=== PATIENT | female | born 1965 | race Caucasian/White ===

== ENCOUNTER 2017-01-29 14:46 | Emergency (ER) | payer OTHER ==
[~2017-01-29] VITALS: Ht 167.6 cm; Wt 104.3 kg
[~2017-01-29 14:46] MED LIST: MOTRIN800 MG PO; NKHM; TESSALON PERLE200 MG PO; ZITHROMAX250 MG PO
[2017-01-29 14:52] VITALS: BP 152/92
[2017-01-29] MEDS ORDERED: CLARITIN-D 12 H1 TAB PO (14:55)
[2017-01-29] MEDS ORDERED: FLONASE ALLERG9.9 ML NAS (14:55)
== END 2017-01-29 15:05 | disposition home or self-care (01) ==
LOC: ED 14:46
DX: H69.93 Unspecified Eustachian tube disorder, bilateral (principal); Z88.1 Allergy status to other antibiotic agents; Z88.5 Allergy status to narcotic agent

== ENCOUNTER 2017-03-03 18:56 | Emergency (ER) | payer OTHER ==
[~2017-03-03] VITALS: Ht 167.6 cm; Wt 104.3 kg
[~2017-03-03 18:56] MED LIST changes: +CLARITIN-D 12 H1 TAB PO; +FLONASE ALLERG9.9 ML NAS
[2017-03-03 19:19] LABS: BASO % 0.3 % (0.0-1.0); EOS # 0.2 10*3/uL (0.0-0.4); EOS % 1.3 % (1.0-4.0); HEMOGLOBIN 13.2 g/dl (12.0-16.0); LYMPH # 2.5 10*3/uL (1.3-4.4); LYMPH % 22.1 % (27.0-41.0); MEAN CELL VOLUME 91.1 fl (81.0-99.0); MEAN CORPUSCULAR HGB 30.1 pg (27.0-31.0); MONO # 0.5 10*3/uL (0.1-1.0); MONO % 4.3 % (3.0-9.0); NEUT # 8.3 10*3/uL (2.3-7.9); NEUT % 71.8 % (47.0-73.0); PLATELET COUNT AUTOMATED 215 10*3/uL (130-400); RED BLOOD COUNT 4.39 10*6/uL (4.10-5.10); RED CELL DISTRI WIDTH 13.1 % (0-14.5); WHITE BLOOD COUNT 11.5 10*3/uL (4.8-10.8)
[2017-03-03 19:36] LABS: ALBUMIN 3.4 gm/dl (3.1-4.5); ALKALINE PHOSPHATASE 94 U/L (45-117); BUN 12 mg/dl (7-24); CHLORIDE 104 mmol/L (98-107); CREATININE 0.99 mg/dL (0.55-1.02); POTASSIUM 3.7 mmol/L (3.5-5.1); SGOT/AST 14 IU/L (3-35); SGPT/ALT 15 U/L (12-78); SODIUM 139 mmol/L (136-145); TOTAL PROTEIN 7.6 gm/dL (6.4-8.2)
[2017-03-03] MEDS ORDERED: PREDNISONE20 M1 PO (20:12)
[2017-03-03] MEDS ORDERED: PREDNISONE10 M1 PO (20:14)
[2017-03-03 20:15] VITALS: BP 154/93
== END 2017-03-03 20:17 | disposition home or self-care (01) ==
LOC: ED 18:56
PROVIDERS: Emergency Medicine
DX: L50.9 Urticaria, unspecified (principal); Z88.1 Allergy status to other antibiotic agents; Z88.6 Allergy status to analgesic agent

== ENCOUNTER 2017-03-05 08:43 | Emergency (ER) | payer OTHER ==
[~2017-03-05] VITALS: Wt 99.8 kg
[~2017-03-05 08:43] MED LIST changes: +PREDNISONE10 M1 PO; +PREDNISONE20 M1 PO
[2017-03-05 08:45] VITALS: BP 157/90
[2017-03-05] MEDS ORDERED: CORTISPORIN SUS10 ML OT (09:41)
== END 2017-03-05 10:51 | disposition home or self-care (01) ==
LOC: ED 08:43
DX: H60.91 Unspecified otitis externa, right ear (principal); J34.89 Other specified disorders of nose and nasal sinuses; R09.81 Nasal congestion; Z88.1 Allergy status to other antibiotic agents; Z88.6 Allergy status to analgesic agent

== ENCOUNTER 2017-07-25 08:44 | Emergency (ER) | payer OTHER ==
[~2017-07-25] VITALS: Ht 167.6 cm; Wt 99.8 kg
[~2017-07-25 08:44] MED LIST changes: +CORTISPORIN SUS10 ML OT
[2017-07-25 08:48] VITALS: BP 152/96
[2017-07-25] MEDS ORDERED: TAMIFLU 75MG CA75 MG PO (09:29)
== END 2017-07-25 10:08 | disposition home or self-care (01) ==
LOC: ED 08:44
DX: J11.1 Influenza due to unidentified influenza virus with other respiratory manifestations (principal); Z88.1 Allergy status to other antibiotic agents; Z88.6 Allergy status to analgesic agent

== ENCOUNTER → 2017-11-15 | Outpatient (CLI) | payer SELFPAY ==
[~2017-11-15] MED LIST changes: +TAMIFLU 75MG CA75 MG PO
== END | disposition home or self-care (01) ==
LOC: ORTHO 03:15
DX: M19.041 Primary osteoarthritis, right hand (principal)

== ENCOUNTER 2018-01-10 09:18 | Emergency (ER) | payer OTHER ==
[~2018-01-10] VITALS: Wt 104.3 kg
[2018-01-10 09:22] VITALS: BP 157/85
[2018-01-10] MEDS ORDERED: PENNSAID112 GM T (09:29)
[2018-01-10] MEDS ORDERED: DELTASONE20 M1 PO (09:41)
== END 2018-01-10 09:45 | disposition home or self-care (01) ==
LOC: ED 09:18
DX: L29.9 Pruritus, unspecified (principal); T39.395A Adverse effect of other nonsteroidal anti-inflammatory drugs [NSAID], initial encounter; Z88.1 Allergy status to other antibiotic agents; Z88.5 Allergy status to narcotic agent; Z88.8 Allergy status to other drugs, medicaments and biological substances; Y92.9 Unspecified place or not applicable

== ENCOUNTER → 2019-07-04 | Outpatient (CLI) | payer OTHER ==
[~2019-07-04] MED LIST changes: +DELTASONE20 M1 PO; +PENNSAID112 GM T
== END | disposition home or self-care (01) ==
LOC: RAD 11:45
DX: R05 Cough (principal)

== ENCOUNTER → 2019-07-18 | Outpatient (CLI) | payer OTHER | END | disposition home or self-care (01) | LOC: CP 12:26 | DX: R05 Cough (principal) ==

== ENCOUNTER → 2019-08-19 | Outpatient (CLI) | payer OTHER | END | disposition home or self-care (01) | LOC: MAMMO 07-29 08:30 | DX: Z12.31 Encounter for screening mammogram for malignant neoplasm of breast (principal) ==

== ENCOUNTER → 2019-08-21 | Outpatient (CLI) | payer OTHER ==
[2019-08-23 00:04] LABS: B PERTUSSIS IGG AB 2.5 index (0.00-0.94); B PERTUSSIS IGM AB 1.7 index (0.0-0.9)
== END ==
LOC: LAB 16:09
PROVIDERS: Family Medicine
DX: R05 Cough (principal)

== ENCOUNTER 2019-12-15 04:01 | Emergency (ER) | payer OTHER ==
[~2019-12-15] VITALS: Ht 170.1 cm; Wt 108.9 kg
[2019-12-15 04:18] VITALS: BP 170/106
[2019-12-15] MEDS ORDERED: PEPCID20 MG PO (04:30)
[2019-12-15] MEDS ORDERED: PREDNISONE10 MG PO (04:30)
== END 2019-12-15 04:42 | disposition home or self-care (01) ==
LOC: ED 04:01
DX: L23.7 Allergic contact dermatitis due to plants, except food (principal); J45.909 Unspecified asthma, uncomplicated; G43.909 Migraine, unspecified, not intractable, without status migrainosus; Z88.1 Allergy status to other antibiotic agents; Z88.8 Allergy status to other drugs, medicaments and biological substances; Z88.6 Allergy status to analgesic agent

== ENCOUNTER → 2020-05-30 | Outpatient (CLI) | payer BC ==
[~2020-05-30] MED LIST changes: +PEPCID20 MG PO; +PREDNISONE10 MG PO
[2020-05-30 07:44] LABS: BASO % 0.3 % (0.0-1.0); EOS # 0.3 10*3/uL (0.0-0.4); EOS % 3.2 % (1.0-4.0); HEMATOCRIT 42.9 % (37.0-47.0); LYMPH # 2.2 10*3/uL (1.3-4.4); LYMPH % 24.9 % (27.0-41.0); MEAN CELL VOLUME 90.9 fl (81.0-99.0); MEAN CORPUSCULAR HGB 28.2 pg (27.0-31.0); MEAN PLATELET VOLUME 8.7 fl (9.6-12.3); MONO # 0.5 10*3/uL (0.1-1.0); MONO % 5.5 % (3.0-9.0); NEUT # 5.8 10*3/uL (2.3-7.9); NEUT % 65.5 % (47.0-73.0); PLATELET COUNT AUTOMATED 225 10*3/uL (130-400); RED BLOOD COUNT 4.72 10*6/uL (4.10-5.10); RED CELL DISTRI WIDTH 13.9 % (0-14.5); WHITE BLOOD COUNT 8.9 10*3/uL (4.8-10.8)
[2020-05-30 08:02] LABS: ALBUMIN 3.5 gm/dl (3.1-4.5); ALKALINE PHOSPHATASE 108 U/L (45-117); BUN 16 mg/dl (7-24); CHLORIDE 106 mmol/L (98-107); CHOLESTEROL 194 mg/dL (<200); HDL CHOLESTEROL 83 mg/dl (40-60); LDL CHOLESTEROL 93 mg/dL (9-159); POTASSIUM 3.8 mmol/L (3.5-5.1); SODIUM 141 mmol/L (136-145); TRIGLYCERIDES 89 mg/dl (<150); VLDL CHOLESTEROL 18 mg/dL (6-40)
[2020-05-30 08:08] LABS: CREATININE 0.99 mg/dL (0.55-1.02)
[2020-05-30 08:22] LABS: SGOT/AST 24 IU/L (3-35); SGPT/ALT 26 U/L (12-78)
== END | disposition home or self-care (01) ==
LOC: LAB 07:21
PROVIDERS: ATTEND Nurse Practitioner Primary Care
DX: Z00.00 Encounter for general adult medical examination without abnormal findings (principal); Z68.41 Body mass index [BMI] 40.0-44.9, adult

== ENCOUNTER → 2021-02-18 | Outpatient (CLI) | payer BC | END | disposition home or self-care (01) | LOC: MAMMO 10:28 | PROVIDERS: ATTEND Nurse Practitioner Primary Care | DX: Z12.31 Encounter for screening mammogram for malignant neoplasm of breast (principal); N64.89 Other specified disorders of breast ==

== ENCOUNTER → 2021-11-26 | Outpatient (CLI) | payer OTHER ==
[2021-11-26 07:24] LABS: HEMATOCRIT 42.3 % (37.0-47.0); MEAN CELL VOLUME 86.3 fl (81.0-99.0); MEAN CORPUSCULAR HGB CONC 32.4 g/dl (33.0-37.0); MEAN PLATELET VOLUME 8.4 fl (9.6-12.3); RED BLOOD COUNT 4.9 10*6/uL (4.10-5.10); RED CELL DISTRI WIDTH 13.8 % (0-14.5); WHITE BLOOD COUNT 5.9 10*3/uL (4.8-10.8)
[2021-11-26 07:40] LABS: ALKALINE PHOSPHATASE 94 U/L (45-117); BUN 18 mg/dl (7-24); CHLORIDE 108 mmol/L (98-107); CHOLESTEROL 197 mg/dL (<200); CREATININE 0.87 mg/dL (0.55-1.02); LDL CHOLESTEROL 106 mg/dL (9-159); POTASSIUM 3.9 mmol/L (3.5-5.1); SGOT/AST 18 IU/L (3-35); SGPT/ALT 28 U/L (12-78); SODIUM 139 mmol/L (136-145); TOTAL PROTEIN 7.6 gm/dL (6.4-8.2); TRIGLYCERIDES 102 mg/dl (<150)
== END | disposition home or self-care (01) ==
LOC: LAB 07:03
PROVIDERS: ATTEND Physician Assistant
DX: Z12.11 Encounter for screening for malignant neoplasm of colon (principal); K21.00 Gastro-esophageal reflux disease with esophagitis, without bleeding

== ENCOUNTER → 2022-06-08 | Outpatient (CLI) | payer OTHER | END | disposition home or self-care (01) | LOC: ORTHO 01:18 | PROVIDERS: ATTEND Orthopaedic Surgery | DX: M25.561 Pain in right knee (principal) ==

== ENCOUNTER → 2025-05-20 | Outpatient (CLI) | payer OTHER | END | disposition home or self-care (01) | LOC: MAMMO 12:42 | PROVIDERS: ATTEND Physician Assistant | DX: Z12.31 Encounter for screening mammogram for malignant neoplasm of breast (principal); R92.313 Mammographic fatty tissue density, bilateral breasts ==